=== PATIENT | female | born 1985 | race Caucasian/White ===

== ENCOUNTER 2021-07-25 07:17 | Emergency (ER) | payer OTHER ==
[2021-07-25] MEDS ORDERED: predniSONE 20 MG TAB ONE (07:34)
[2021-07-25 23:01] LABS: SARS-CoV-2 PCR by NAA Not Detected (NotDetected)
== END 2021-07-25 07:50 | disposition home or self-care (01) ==
LOC: MADERS 07:17
DX: J45.901 Unspecified asthma with (acute) exacerbation (principal); Z20.822 Contact with and (suspected) exposure to COVID-19; F17.210 Nicotine dependence, cigarettes, uncomplicated; Z79.899 Other long term (current) drug therapy
CPT/HCPCS: J7512; J7620; U0003; U0005